=== PATIENT | female | born 1960 | race American Indian/Alaskan Native ===

== ENCOUNTER 2021-06-28 08:44 | Emergency (ER) | payer MEDICARE, OTHER ==
[2021-06-28] MEDS ORDERED: LORazepam 2 MG/ML SDV IVPUSH ONE ×7 (09:17→14:34)
--- NOTE | 2021-06-28 09:18 | CR ---
Chest: Portable view of the chest was obtained. Comparison: Prior chest x-ray of 02/21/21. Heart size and mediastinum are within normal limits. Lungs are clear with no acute parenchymal change. Bony structures show nothing acute. Impression: 1. No acute abnormality is appreciated on portable chest x-ray. Diagnostic code #1
--- NOTE | 2021-06-28 09:18 | CT ---
Head CT Technique: Multiple axial sections through the brain were obtained. Intravenous contrast was not utilized. Reconstructed coronal and sagittal images were obtained. Comparison: No prior intracranial imaging is available. Findings: Ventricles along with basal cisterns and sulci over the convexities are within normal limits for the patient's age. No abnormal parenchymal densities are seen. No evidence of intracranial hemorrhage is seen. No midline shift or mass-effect is seen. Minimal basal ganglia calcification is noted which is incidental. Bone window settings were reviewed. Visualized mastoid sinuses and paranasal sinuses show nothing acute. No acute calvarial abnormality is appreciated. Impression: 1. Nothing acute is seen on noncontrast head CT study. 2. If patient's symptoms warrant further evaluation, consider MRI to further evaluate. Diagnostic code #1
--- NOTE | 2021-06-28 09:20 | EDM.PDOC ---
ED HPI GENERAL MEDICAL PROBLEM - General Chief Complaint: Neuro Symptoms/Deficits Stated Complaint: SLURRING WORDS Time Seen by Provider: 06/28/21 08:48 - History of Present Illness INITIAL COMMENTS - FREE TEXT/NARRATIVE: 61-year-old female presents the emergency room with speech difficulties. A stroke alert was called. Last known normal approximately midnight. Her symptoms worsened around 630 or 7 this morning. The patient has been quite restless she has a history of restless legs and she cannot relax her legs. The patient uses gabapentin 3 times a day. According to the patient's daughter her pill bottle was at the side of her bed. The patient has not noticed any weakness. According to the patient's daughter she has been more confused and at times her speech has not made sense. There is no history of fevers or chills. Prior to this episode she is not having any pain is out of the ordinary. At this time she is having a hard time relaxing and keeps moving her legs. She complains of low back pain especially when she has to move her legs. She has no areas of numbness or weakness. - Related Data Allergies Allergy/AdvReac Type Severity Reaction Status Date / Time morphine Allergy Unknown Cannot Verified 06/28/21 09:51 Remember Home Meds: Home Meds FLUoxetine [PROzac] 40 mg PO DAILY 06/28/21 [History] Gabapentin [Neurontin] 100 mg PO TID 06/28/21 [History] Levothyroxine 112 mcg PO ACBREAKFAST 06/28/21 [History] Pantoprazole [ProTONIX] 40 mg PO DAILY 06/28/21 [History] Venlafaxine HCl [Venlafaxine ER] 37.5 mg PO DAILY 06/28/21 [History] atorvaSTATin [Lipitor] 40 mg PO BEDTIME 06/28/21 [History] lamoTRIgine [Lamotrigine] 2 tab PO DAILY 06/28/21 [History] Social & Family History - Tobacco Use Tobacco Use Status *Q: Never Tobacco User - Caffeine Use Caffeine Use: Reports: Coffee - Recreational Drug Use Recreational Drug Use: No ED ROS GENERAL - Review of Systems Review Of Systems: See Below Constitutional: Reports: No Symptoms. Denies: Fever, Chills HEENT: Reports: No Symptoms Respiratory: Reports: No Symptoms Cardiovascular: Reports: No Symptoms GI/Abdominal: Reports: No Symptoms : Reports: No Symptoms Musculoskeletal: Reports: Back Pain, Leg Pain (Restless leg) Neurological: Reports: Confusion. Denies: Headache Psychiatric: Reports: Agitation, Anxiety, Confusion ED EXAM, GENERAL - Physical Exam Exam: See Below Exam Limited By: No Limitations General Appearance: Alert, Anxious, Other (She cannot relax she is quite agitated exam is limited due to this.) Eye Exam: Bilateral Eye: EOMI, Normal Inspection, PERRL Ears: Normal External Exam, Normal Canal, Hearing Grossly Normal, Normal TMs Nose: Normal Inspection, Normal Mucosa, No Blood Throat/Mouth: Normal Inspection, Normal Lips, Normal Teeth, Normal Gums, Normal Oropharynx, Normal Voice, No Airway Compromise Head: Atraumatic, Normocephalic Neck: Normal Inspection, Supple, Non-Tender, Full Range of Motion. No: Lymphadenopathy (L), Lymphadenopathy (R), Tender Midline Respiratory/Chest: No Respiratory Distress, Lungs Clear, Normal Breath Sounds Cardiovascular: Regular Rate, Rhythm, No Edema, No Murmur GI/Abdominal: Normal Bowel Sounds, Soft, Non-Tender, Other (Obese) Extremities: Normal Inspection. No: Laura's Sign Neurological: Alert, No Motor/Sensory Deficits (She states she has good sensation with testing no obvious muscle weakness), Abnormal Reflexes (After the patient was intubated I checked for clonus and she has severe clonus multiple beats greater than 5), Other (She is really quite restless) Psychiatric: Anxious Skin Exam: Warm, Dry, Intact ED GENERAL MEDICAL PROCEDURES - Endotracheal Intubation Time of Intubation: 12:45 ET Intubation Indication: Airway Protection Preparation: Suction, Balloon Tested, BVM Set Up Airway Assessment: Obese Pre-Oxygenation: Assisted with BVM, 100% FiO2 Anesthesia Meds: Ketamine, Succinylcholine Placement: Orotracheal, Uncomplicated Placement Number of Attempts: 2 (Attempt failed because the glides go came loose from the #3 blade) Confirmed By: CO2 Indicator, Bilateral Breath Sounds, Chest Xray Tube Secured By: By RT Endotracheal Intubation Comment: Anticipated difficult intubation with her obesity first attempt failed due to technical difficulty the patient's O2 saturation remained stable during this quick transition #1 Interpretation EKG Date: 06/28/21 Rhythm: NSR Rate (Beats/Min): 96 [place]: Normal P-Wave: Present QRS: Other (Decreased voltage in the precordial leads) ST-T: Other ([place] ST-T changes low voltage T waves) QT: Prolonged Comparison: NA - No Prior EKG EKG Interpretation Comments: Abnormal EKG Course - Vital Signs Last Recorded V/S: Last Vital Signs Temp 36.5 C 06/28/21 09:06 Pulse 101 H 06/28/21 13:39 Resp 15 06/28/21 13:39 BP 101/63 06/28/21 13:39 Pulse Ox 96 06/28/21 13:39 - Orders/Labs/Meds Orders: Active Orders 24 hr Category Date Time Status Insert Garcia Catheter [Insert Urinary Catheter] [OM.PC] Care 06/28/21 13:45 Ordered Q24H Insert Urinary Catheter [OM.PC] Q24H Care 06/28/21 12:15 Ordered RT Ventilator, Adult [RC] ASDIRECTED Care 06/28/21 13:30 Active Urinary Catheter Assessment [RC] ASDIRECTED Care 06/28/21 12:07 Active Urinary Catheter Assessment [RC] ASDIRECTED Care 06/28/21 13:41 Active BLOOD CULTURE [MREF] Stat Lab 06/28/21 09:25 Received BLOOD CULTURE [MREF] Stat Lab 06/28/21 09:30 Received Ketamine [Ketalar] 500 mg Med 06/28/21 13:38 Active Sodium Chloride 0.9% [Normal Saline] 490 ml IV TITRATE Lactated Ringers [Ringers, Lactated] 1,000 ml Med 06/28/21 12:15 Active IV ASDIRECTED Lactated Ringers [Ringers, Lactated] 1,000 ml Med 06/28/21 13:15 Active IV ASDIRECTED Norepinephrine [Levophed] 4 mg Med 06/28/21 13:30 Active Dextrose 5% in Water 246 ml IV TITRATE Blood Culture x2 Reflex Set [OM.PC] Stat Oth 06/28/21 08:57 Ordered Medication Orders Lactated Ringer's (Ringers, Lactated) 1,000 mls @ 150 mls/hr IV ASDIRECTED [facility] Last Admin: 06/28/21 13:54 Dose: 150 mls/hr Documented by: MICHAELA Lactated Ringer's (Ringers, Lactated) 1,000 mls @ 999 mls/hr IV ASDIRECTED [facility] Last Admin: 06/28/21 13:52 Dose: 999 mls/hr Documented by: MICHAELA Norepinephrine Bitartrate 4 mg (/ Dextrose/Water) 250 mls @ 10 mls/hr IV TITRATE [facility] Last Infusion: 06/28/21 14:00 Dose: 11.3 mls/hr Documented by: Admin: 06/28/21 13:29 Dose: 10 mls/hr Documented by: MICHAELA Ketamine HCl 500 mg/ Sodium (Chloride) 500 mls @ 12 mls/hr IV TITRATE WILFREDO Labs: Laboratory Tests 06/28/21 06/28/21 06/28/21 Range/Units 09:05 09:05 09:05 WBC 9.52 (3.98-10.04) K/mm3 RBC 4.70 (3.98-5.22) M/mm3 Hgb 14.5 (11.2-15.7) gm/dl Hct 43.8 (34.1-44.9) % MCV 93.2 (79.4-94.8) fl MCH 30.9 (25.6-32.2) pg MCHC 33.1 (32.2-35.5) g/dl RDW Std Deviation 41.7 (36.4-46.3) fL Plt Count 248 (182-369) K/mm3 MPV 10.1 (9.4-12.3) fl Neut % (Auto) 68.0 (34.0-71.1) % Lymph % (Auto) 19.7 (19.3-51.7) % [place] % (Auto) 9.6 (4.7-12.5) % Eos % (Auto) 2.0 (0.7-5.8) Baso % (Auto) 0.5 (0.1-1.2) % Neut # (Auto) 6.47 H (1.56-6.13) K/mm3 Lymph # (Auto) 1.88 (1.18-3.74) K/mm3 [place] # (Auto) 0.91 H (0.24-0.36) K/mm3 Eos # (Auto) 0.19 (0.04-0.36) K/mm3 Baso # (Auto) 0.05 (0.01-0.08) K/mm3 PT 9.9 (9.7-12.0) SECONDS INR < 0.93 APTT 24.1 (21.7-31.4) SECONDS Puncture Site ABG pH (7.35-7.45) ABG pCO2 (35.0-45.0) mmHg ABG pO2 (80.0-100.0) mmHg ABG HCO3 (22.0-26.0) meq/L ABG O2 Saturation (96.0-97.0) % ABG Base Excess (-2-2.0) A-a Gradient mmHg O2 Delivery Device FiO2 (21.00-100.00) % Tidal Volume cc PEEP cmH20 Sodium 140 (136-145) mEq/L Potassium 4.3 (3.5-5.1) mEq/L Chloride 105 (98-107) mEq/L Carbon Dioxide 28 (21-32) mEq/L Anion Gap 11.3 (5-15) BUN 14 (7-18) mg/dL Creatinine 0.8 (0.55-1.02) mg/dL Est Cr Clr Drug Dosing 71.81 mL/min Estimated GFR (MDRD) > 60 (>60) mL/min BUN/Creatinine Ratio 17.5 (14-18) Glucose 103 H (70-99) mg/dL Lactic Acid (0.4-2.0) mmol/L Calcium 8.5 (8.5-10.1) mg/dL Total Bilirubin 0.7 (0.2-1.0) mg/dL AST 29 (15-37) U/L ALT 42 (14-59) U/L Alkaline Phosphatase 113 (46-116) U/L Ammonia (11-32) umol/L Troponin I < 0.017 (0.00-0.056) ng/mL Total Protein 7.2 (6.4-8.2) g/dl Albumin 3.6 (3.4-5.0) g/dl Globulin 3.6 gm/dL Albumin/Globulin Ratio 1.0 (1-2) Urine Color (Yellow) Urine Appearance (Clear) Urine pH (5.0-8.0) Ur Specific [place] (1.005-1.030) Urine Protein (Negative) Urine Glucose (UA) (Negative) Urine Ketones (Negative) Urine Occult Blood (Negative) Urine Nitrite (Negative) Urine Bilirubin (Negative) Urine Urobilinogen (0.2-1.0) Ur Leukocyte Esterase (Negative) Salicylates (2.8-20) mg/dL Urine Opiates Screen (BMKXZZ=764) Ur Buprenorphine Scrn (CUTOFF=10) Ur Oxycodone Screen (BPV1FL=750) Urine Methadone Screen (LUZDEI=395) Ur Propoxyphene Screen (DXIYZN=105) Acetaminophen (10-30) ug/mL Ur Barbiturates Screen (UEUSJH=909) Ur Tricyclics Screen (YWZDYW=643) Ur Phencyclidine Scrn (CUTOFF=25) Ur Amphetamine Screen (AQGVYM=756) U Methamphetamines Scrn (CREKIS=598) U Benzodiazepines Scrn (GWIHOD=413) U Cocaine Metab Screen (PQRARM=762) U Marijuana (THC) Screen (CUTOFF=50) Ethyl Alcohol (0.00) gm% SARS-CoV-2 RNA (SANDRA) (NEGATIVE) 06/28/21 06/28/21 06/28/21 Range/Units 09:05 09:05 09:05 WBC (3.98-10.04) K/mm3 RBC (3.98-5.22) M/mm3 Hgb (11.2-15.7) gm/dl Hct (34.1-44.9) % MCV (79.4-94.8) fl MCH (25.6-32.2) pg MCHC (32.2-35.5) g/dl RDW Std Deviation (36.4-46.3) fL Plt Count (182-369) K/mm3 MPV (9.4-12.3) fl Neut % (Auto) (34.0-71.1) % Lymph % (Auto) (19.3-51.7) % [place] % (Auto) (4.7-12.5) % Eos % (Auto) (0.7-5.8) Baso % (Auto) (0.1-1.2) % Neut # (Auto) (1.56-6.13) K/mm3 Lymph # (Auto) (1.18-3.74) K/mm3 [place] # (Auto) (0.24-0.36) K/mm3 Eos # (Auto) (0.04-0.36) K/mm3 Baso # (Auto) (0.01-0.08) K/mm3 PT (9.7-12.0) SECONDS INR APTT (21.7-31.4) SECONDS Puncture Site ABG pH (7.35-7.45) ABG pCO2 (35.0-45.0) mmHg ABG pO2 (80.0-100.0) mmHg ABG HCO3 (22.0-26.0) meq/L ABG O2 Saturation (96.0-97.0) % ABG Base Excess (-2-2.0) A-a Gradient mmHg O2 Delivery Device FiO2 (21.00-100.00) % Tidal Volume cc PEEP cmH20 Sodium (136-145) mEq/L Potassium (3.5-5.1) mEq/L Chloride (98-107) mEq/L Carbon Dioxide (21-32) mEq/L Anion Gap (5-15) BUN (7-18) mg/dL Creatinine (0.55-1.02) mg/dL Est Cr Clr Drug Dosing mL/min Estimated GFR (MDRD) (>60) mL/min BUN/Creatinine Ratio (14-18) Glucose (70-99) mg/dL Lactic Acid (0.4-2.0) mmol/L Calcium (8.5-10.1) mg/dL Total Bilirubin (0.2-1.0) mg/dL AST (15-37) U/L ALT (14-59) U/L Alkaline Phosphatase (46-116) U/L Ammonia (11-32) umol/L Troponin I (0.00-0.056) ng/mL Total Protein (6.4-8.2) g/dl Albumin (3.4-5.0) g/dl Globulin gm/dL Albumin/Globulin Ratio (1-2) Urine Color (Yellow) Urine Appearance (Clear) Urine pH (5.0-8.0) Ur Specific [place] (1.005-1.030) Urine Protein (Negative) Urine Glucose (UA) (Negative) Urine Ketones (Negative) Urine Occult Blood (Negative) Urine Nitrite (Negative) Urine Bilirubin (Negative) Urine Urobilinogen (0.2-1.0) Ur Leukocyte Esterase (Negative) Salicylates < 0.2 L (2.8-20) mg/dL Urine Opiates Screen (XIBUDW=023) Ur Buprenorphine Scrn (CUTOFF=10) Ur Oxycodone Screen (UES2GW=013) Urine Methadone Screen (JOWYTK=144) Ur Propoxyphene Screen (CXZBKZ=060) Acetaminophen 0 L (10-30) ug/mL Ur Barbiturates Screen (PIZCOZ=104) Ur Tricyclics Screen (AYGCHE=686) Ur Phencyclidine Scrn (CUTOFF=25) Ur Amphetamine Screen (WPZWBB=504) U Methamphetamines Scrn (CRXZBT=832) U Benzodiazepines Scrn (SOEWVZ=654) U Cocaine Metab Screen (RGBNPM=757) U Marijuana (THC) Screen (CUTOFF=50) Ethyl Alcohol 0.00 (0.00) gm% SARS-CoV-2 RNA (SANDRA) (NEGATIVE) 06/28/21 06/28/21 06/28/21 Range/Units 09:25 09:30 09:35 WBC (3.98-10.04) K/mm3 RBC (3.98-5.22) M/mm3 Hgb (11.2-15.7) gm/dl Hct (34.1-44.9) % MCV (79.4-94.8) fl MCH (25.6-32.2) pg MCHC (32.2-35.5) g/dl RDW Std Deviation (36.4-46.3) fL Plt Count (182-369) K/mm3 MPV (9.4-12.3) fl Neut % (Auto) (34.0-71.1) % Lymph % (Auto) (19.3-51.7) % [place] % (Auto) (4.7-12.5) % Eos % (Auto) (0.7-5.8) Baso % (Auto) (0.1-1.2) % Neut # (Auto) (1.56-6.13) K/mm3 Lymph # (Auto) (1.18-3.74) K/mm3 [place] # (Auto) (0.24-0.36) K/mm3 Eos # (Auto) (0.04-0.36) K/mm3 Baso # (Auto) (0.01-0.08) K/mm3 PT (9.7-12.0) SECONDS INR APTT (21.7-31.4) SECONDS Puncture Site ABG pH (7.35-7.45) ABG pCO2 (35.0-45.0) mmHg ABG pO2 (80.0-100.0) mmHg ABG HCO3 (22.0-26.0) meq/L ABG O2 Saturation (96.0-97.0) % ABG Base Excess (-2-2.0) A-a Gradient mmHg O2 Delivery Device FiO2 (21.00-100.00) % Tidal Volume cc PEEP cmH20 Sodium (136-145) mEq/L Potassium (3.5-5.1) mEq/L Chloride (98-107) mEq/L Carbon Dioxide (21-32) mEq/L Anion Gap (5-15) BUN (7-18) mg/dL Creatinine (0.55-1.02) mg/dL Est Cr Clr Drug Dosing mL/min Estimated GFR (MDRD) (>60) mL/min BUN/Creatinine Ratio (14-18) Glucose (70-99) mg/dL Lactic Acid 0.9 (0.4-2.0) mmol/L Calcium (8.5-10.1) mg/dL Total Bilirubin (0.2-1.0) mg/dL AST (15-37) U/L ALT (14-59) U/L Alkaline Phosphatase (46-116) U/L Ammonia 13 (11-32) umol/L Troponin I (0.00-0.056) ng/mL Total Protein (6.4-8.2) g/dl Albumin (3.4-5.0) g/dl Globulin gm/dL Albumin/Globulin Ratio (1-2) Urine Color (Yellow) Urine Appearance (Clear) Urine pH (5.0-8.0) Ur Specific [place] (1.005-1.030) Urine Protein (Negative) Urine Glucose (UA) (Negative) Urine Ketones (Negative) Urine Occult Blood (Negative) Urine Nitrite (Negative) Urine Bilirubin (Negative) Urine Urobilinogen (0.2-1.0) Ur Leukocyte Esterase (Negative) Salicylates (2.8-20) mg/dL Urine Opiates Screen (AZHNAU=461) Ur Buprenorphine Scrn (CUTOFF=10) Ur Oxycodone Screen (APW9VD=864) Urine Methadone Screen (CGCZAU=159) Ur Propoxyphene Screen (SLOWHA=201) Acetaminophen (10-30) ug/mL Ur Barbiturates Screen (DHZZYS=773) Ur Tricyclics Screen (THBDSG=167) Ur Phencyclidine Scrn (CUTOFF=25) Ur Amphetamine Screen (NJCQTR=722) U Methamphetamines Scrn (GVUVOB=880) U Benzodiazepines Scrn (SOQGYR=972) U Cocaine Metab Screen (GSJKWL=647) U Marijuana (THC) Screen (CUTOFF=50) Ethyl Alcohol (0.00) gm% SARS-CoV-2 RNA (SANDRA) Negative (NEGATIVE) 06/28/21 06/28/21 06/28/21 Range/Units 11:50 11:50 12:09 WBC (3.98-10.04) K/mm3 RBC (3.98-5.22) M/mm3 Hgb (11.2-15.7) gm/dl Hct (34.1-44.9) % MCV (79.4-94.8) fl MCH (25.6-32.2) pg MCHC (32.2-35.5) g/dl RDW Std Deviation (36.4-46.3) fL Plt Count (182-369) K/mm3 MPV (9.4-12.3) fl Neut % (Auto) (34.0-71.1) % Lymph % (Auto) (19.3-51.7) % [place] % (Auto) (4.7-12.5) % Eos % (Auto) (0.7-5.8) Baso % (Auto) (0.1-1.2) % Neut # (Auto) (1.56-6.13) K/mm3 Lymph # (Auto) (1.18-3.74) K/mm3 [place] # (Auto) (0.24-0.36) K/mm3 Eos # (Auto) (0.04-0.36) K/mm3 Baso # (Auto) (0.01-0.08) K/mm3 PT (9.7-12.0) SECONDS INR APTT (21.7-31.4) SECONDS Puncture Site Lt radial ABG pH 7.37 (7.35-7.45) ABG pCO2 41.6 (35.0-45.0) mmHg ABG pO2 69.0 L (80.0-100.0) mmHg ABG HCO3 23.5 (22.0-26.0) meq/L ABG O2 Saturation 91.0 L (96.0-97.0) % ABG Base Excess -1.2 (-2-2.0) A-a Gradient 29 mmHg O2 Delivery Device Room air FiO2 21.00 (21.00-100.00) % Tidal Volume cc PEEP cmH20 Sodium (136-145) mEq/L Potassium (3.5-5.1) mEq/L Chloride (98-107) mEq/L Carbon Dioxide (21-32) mEq/L Anion Gap (5-15) BUN (7-18) mg/dL Creatinine (0.55-1.02) mg/dL Est Cr Clr Drug Dosing mL/min Estimated GFR (MDRD) (>60) mL/min BUN/Creatinine Ratio (14-18) Glucose (70-99) mg/dL Lactic Acid (0.4-2.0) mmol/L Calcium (8.5-10.1) mg/dL Total Bilirubin (0.2-1.0) mg/dL AST (15-37) U/L ALT (14-59) U/L Alkaline Phosphatase (46-116) U/L Ammonia (11-32) umol/L Troponin I (0.00-0.056) ng/mL Total Protein (6.4-8.2) g/dl Albumin (3.4-5.0) g/dl Globulin gm/dL Albumin/Globulin Ratio (1-2) Urine Color Yellow (Yellow) Urine Appearance Clear (Clear) Urine pH 7.0 (5.0-8.0) Ur Specific [place] 1.015 (1.005-1.030) Urine Protein Negative (Negative) Urine Glucose (UA) Negative (Negative) Urine Ketones Negative (Negative) Urine Occult Blood Negative (Negative) Urine Nitrite Negative (Negative) Urine Bilirubin Negative (Negative) Urine Urobilinogen 0.2 (0.2-1.0) Ur Leukocyte Esterase Negative (Negative) Salicylates (2.8-20) mg/dL Urine Opiates Screen Negative (NDNMGL=730) Ur Buprenorphine Scrn Negative (CUTOFF=10) Ur Oxycodone Screen Negative (OVT2XT=560) Urine Methadone Screen Negative (ZDPNCQ=581) Ur Propoxyphene Screen Negative (HHAYPP=462) Acetaminophen (10-30) ug/mL Ur Barbiturates Screen Negative (SFHJDT=154) Ur Tricyclics Screen Negative (JALEAH=942) Ur Phencyclidine Scrn Negative (CUTOFF=25) Ur Amphetamine Screen Negative (YTQGVX=304) U Methamphetamines Scrn Negative (ZLKXHZ=508) U Benzodiazepines Scrn Negative (QCRRXQ=521) U Cocaine Metab Screen Negative (BZPXUN=307) U Marijuana (THC) Screen Negative (CUTOFF=50) Ethyl Alcohol (0.00) gm% SARS-CoV-2 RNA (SANDRA) (NEGATIVE) 06/28/21 Range/Units 13:26 WBC (3.98-10.04) K/mm3 RBC (3.98-5.22) M/mm3 Hgb (11.2-15.7) gm/dl Hct (34.1-44.9) % MCV (79.4-94.8) fl MCH (25.6-32.2) pg MCHC (32.2-35.5) g/dl RDW Std Deviation (36.4-46.3) fL Plt Count (182-369) K/mm3 MPV (9.4-12.3) fl Neut % (Auto) (34.0-71.1) % Lymph % (Auto) (19.3-51.7) % [place] % (Auto) (4.7-12.5) % Eos % (Auto) (0.7-5.8) Baso % (Auto) (0.1-1.2) % Neut # (Auto) (1.56-6.13) K/mm3 Lymph # (Auto) (1.18-3.74) K/mm3 [place] # (Auto) (0.24-0.36) K/mm3 Eos # (Auto) (0.04-0.36) K/mm3 Baso # (Auto) (0.01-0.08) K/mm3 PT (9.7-12.0) SECONDS INR APTT (21.7-31.4) SECONDS Puncture Site Rt radial ABG pH 7.25 L (7.35-7.45) ABG pCO2 57.6 H (35.0-45.0) mmHg ABG pO2 109.0 H (80.0-100.0) mmHg ABG HCO3 24.6 (22.0-26.0) meq/L ABG O2 Saturation 97.1 H (96.0-97.0) % ABG Base Excess -3.1 L (-2-2.0) A-a Gradient 140 mmHg O2 Delivery Device Ventilator FiO2 45.00 (21.00-100.00) % Tidal Volume 450.0 cc PEEP 5.0 cmH20 Sodium (136-145) mEq/L Potassium (3.5-5.1) mEq/L Chloride (98-107) mEq/L Carbon Dioxide (21-32) mEq/L Anion Gap (5-15) BUN (7-18) mg/dL Creatinine (0.55-1.02) mg/dL Est Cr Clr Drug Dosing mL/min Estimated GFR (MDRD) (>60) mL/min BUN/Creatinine Ratio (14-18) Glucose (70-99) mg/dL Lactic Acid (0.4-2.0) mmol/L Calcium (8.5-10.1) mg/dL Total Bilirubin (0.2-1.0) mg/dL AST (15-37) U/L ALT (14-59) U/L Alkaline Phosphatase (46-116) U/L Ammonia (11-32) umol/L Troponin I (0.00-0.056) ng/mL Total Protein (6.4-8.2) g/dl Albumin (3.4-5.0) g/dl Globulin gm/dL Albumin/Globulin Ratio (1-2) Urine Color (Yellow) Urine Appearance (Clear) Urine pH (5.0-8.0) Ur Specific [place] (1.005-1.030) Urine Protein (Negative) Urine Glucose (UA) (Negative) Urine Ketones (Negative) Urine Occult Blood (Negative) Urine Nitrite (Negative) Urine Bilirubin (Negative) Urine Urobilinogen (0.2-1.0) Ur Leukocyte Esterase (Negative) Salicylates (2.8-20) mg/dL Urine Opiates Screen (ULKONF=219) Ur Buprenorphine Scrn (CUTOFF=10) Ur Oxycodone Screen (REY5TL=706) Urine Methadone Screen (ODGBAD=217) Ur Propoxyphene Screen (OEIXIZ=182) Acetaminophen (10-30) ug/mL Ur Barbiturates Screen (DQGBGV=640) Ur Tricyclics Screen (YGQLAM=570) Ur Phencyclidine Scrn (CUTOFF=25) Ur Amphetamine Screen (RHRICO=938) U Methamphetamines Scrn (AGUONC=601) U Benzodiazepines Scrn (LSHFKE=431) U Cocaine Metab Screen (ULWNQR=632) U Marijuana (THC) Screen (CUTOFF=50) Ethyl Alcohol (0.00) gm% SARS-CoV-2 RNA (SANDRA) (NEGATIVE) Meds: Medications Generic Name Dose Route Start Last Admin Trade Name Anel PRN Reason Stop Dose Admin Lactated Ringer's 1,000 mls @ 150 mls/hr 06/28/21 12:15 06/28/21 13:54 Ringers, Lactated IV 150 mls/hr ASDIRECTED WILFREDO Administration Lactated Ringer's 1,000 mls @ 999 mls/hr 06/28/21 13:15 06/28/21 13:52 Ringers, Lactated IV 999 mls/hr ASDIRECTED WILFREDO Administration Norepinephrine Bitartrate 4 mg 250 mls @ 10 mls/hr 06/28/21 13:30 06/28/21 14:00 / Dextrose/Water IV 11.3 mls/hr TITRATE WILFREDO Infusion Ketamine HCl 500 mg/ Sodium 500 mls @ 12 mls/hr 06/28/21 13:38 Chloride IV TITRATE WILFREDO Discontinued Medications Generic Name Dose Route Start Last Admin Trade Name nAel PRN Reason Stop Dose Admin Diphenhydramine HCl 50 mg 06/28/21 10:12 06/28/21 10:26 Diphenhydramine 50 Mg/Ml Sdv IVPUSH 06/28/21 10:13 50 mg ONETIME ONE Administration Haloperidol Lactate 5 mg 06/28/21 10:12 06/28/21 10:25 Haloperidol Lactate 5 Mg/Ml Sdv IVPUSH 06/28/21 10:13 5 mg ONETIME ONE Administration Lactated Ringer's 500 mls @ 999 mls/hr 06/28/21 12:10 06/28/21 12:22 Ringers, Lactated IV 06/28/21 12:40 999 mls/hr .BOLUS ONE Administration Midazolam HCl 100 mg/ Sodium 100 mls @ 1 mls/hr 06/28/21 12:15 Chloride IV TITRATE WILFREDO Protocol 1 MG/HR Fentanyl 2,500 mcg/ Sodium 250 mls @ 10.841 mls/hr 06/28/21 12:15 Chloride IV TITRATE WILFREDO Protocol 1 MCG/KG/HR Propofol 100 mls @ 3.252 mls/hr 06/28/21 13:00 Diprivan 100 Ml IV TITRATE WILFREDO Protocol 5 MCG/KG/MIN Ketamine HCl 500 mg/ Sodium 510 mls @ 12 mls/hr 06/28/21 13:15 06/28/21 14:07 Chloride IV Infused TITRATE WILFREDO Infusion Ketamine HCl Confirm 06/28/21 13:13 06/28/21 13:33 Ketamine 500 Mg/10 Ml Mdv Administered 06/28/21 13:14 Not Given Dose 500 mg .ROUTE .STK-MED ONE Lorazepam 1 mg 06/28/21 09:17 06/28/21 09:25 Lorazepam 2 Mg/Ml Sdv IVPUSH 06/28/21 09:18 1 mg ONETIME ONE Administration Lorazepam 2 mg 06/28/21 09:35 Lorazepam 2 Mg/Ml Sdv IVPUSH 06/28/21 09:36 ONETIME ONE Lorazepam 1 mg 06/28/21 09:37 06/28/21 11:11 Lorazepam 2 Mg/Ml Sdv IVPUSH 06/28/21 09:38 1 mg ONETIME ONE Administration Lorazepam 1 mg 06/28/21 09:38 06/28/21 10:03 Lorazepam 2 Mg/Ml Sdv IVPUSH 06/28/21 09:39 1 mg ONETIME ONE Administration Lorazepam 1 mg 06/28/21 09:38 06/28/21 09:42 Lorazepam 2 Mg/Ml Sdv IVPUSH 06/28/21 09:39 1 mg ONETIME ONE Administration Lorazepam 1 mg 06/28/21 10:58 06/28/21 13:08 Lorazepam 2 Mg/Ml Sdv IVPUSH 06/28/21 10:59 Not Given ONETIME ONE Lorazepam 2 mg 06/28/21 14:34 06/28/21 14:42 Lorazepam 2 Mg/Ml Sdv IVPUSH 06/28/21 14:35 2 mg ONETIME ONE Administration Ondansetron HCl 4 mg 06/28/21 10:01 06/28/21 10:06 Ondansetron 4 Mg/2 Ml Sdv IVPUSH 06/28/21 10:02 4 mg ONETIME ONE Administration - Re-Assessments/Exams Free Text/Narrative Re-Assessment/Exam: 06/28/21 09:[address] is unremarkable chest x-ray does not show any acute changes. We are awaiting an EKG get the patient to relax long enough to get a reasonable tracing has been a problem. I am attempting to get her to calm down a little bit by giving her gentle doses of Ativan 1 mg at a time we will see how she does. Labs ordered 06/28/21 10:33 Discussed with Annie at the [place] [facility] who agrees that if she took too much gabapentin she would probably be sedated unless she is having anticholinergic effects. She agrees with current treatment. This point we are still awaiting EKG and a urine test. 06/28/21 12:12 Patient situation is not really improving she gets more sedated with more medication but she still thrashing around. She will not follow commands she will not open her eyes. She has no meaningful extremity movements just erratic extremity movements. And she moans with no meaningful sounds is probably best intubate the patient 06/28/21 13:36 Patient's blood pressure was a little low she was given some fluid she was moved to trauma 2 anticipating intubation patient was given a fluid bolus. She was pretreated with oxygen. She was given ketamine 1 mg/kg. And then succinylcholine 1.5 mg/kg. Initially patient failed as the glide scope from the tip. This was reinserted and successful endotracheal intubation was achieved confirmed with bilateral breath sounds and CO2 color change as well as direct visualization of the ET tube going into the cords and into the trachea. The patient tolerated this without difficulty. She was started on fentanyl and Versed drip however on my reexam I want to check her for clonus and she is got significant clonus. It was thought best at this point to go and discontinue the fentanyl as it can have some serotonergic effect. With the lack of sedation the patient initially had I think it is unlikely that she took too many of her gabapentin but may be took too many of her SSRI meds. We are anticipating changing her to propofol then her blood pressure decreased. Decision was made to put her on ketamine drip. This is all been done and the patient is doing much better. Case reviewed with poison control again concur with current treatment. I have been told that we have no beds available here. And we cannot find any more in the state but we are looking. 06/28/21 15:18 We found a bed availability at [facility] and I believe we have transportation set up through [facility]. Dr. Laura kindly accepted the patient shortly before 15:00 Departure - Departure Time of Disposition: 15:19 Disposition: DC/Tfer to Acute Hospital 02 Condition: Critical Clinical Impression: Drug overdose, multiple drugs - Discharge Information Referrals: Hui Phillips, [employer] [Primary Care Provider] - Forms: ED Department Discharge Sepsis Event Note (ED) - Evaluation Sepsis Screening Result: No Definite Risk - Focused Exam Vital Signs: Vital Signs Temp Pulse Resp BP Pulse Ox 06/28/21 13:39 101 H 15 101/63 96 06/28/21 12:03 144 H 20 84/55 L 91 L 06/28/21 11:45 144 H 22 H 93/58 L 91 L 06/28/21 11:00 136 H 111/69 93 L 06/28/21 09:56 96 22 H 132/89 96 06/28/21 09:06 36.5 C 71 20 160/132 H 98 - My Orders Last 24 Hours: My Active Orders 06/28/21 08:57 Blood Culture x2 Reflex Set [OM.PC] Stat 06/28/21 09:25 BLOOD CULTURE [MREF] Stat 06/28/21 09:30 BLOOD CULTURE [MREF] Stat 06/28/21 12:07 Urinary Catheter Assessment [RC] ASDIRECTED 06/28/21 12:15 Insert Urinary Catheter [OM.PC] Q24H Lactated Ringers [Ringers, Lactated] 1,000 ml IV ASDIRECTED 06/28/21 13:15 Lactated Ringers [Ringers, Lactated] 1,000 ml IV ASDIRECTED 06/28/21 13:30 RT Ventilator, Adult [RC] ASDIRECTED Norepinephrine [Levophed] 4 mg Dextrose 5% in Water 246 ml IV TITRATE 06/28/21 13:38 Ketamine [Ketalar] 500 mg Sodium Chloride 0.9% [Normal Saline] 490 ml IV TITRATE 06/28/21 13:41 Urinary Catheter Assessment [RC] ASDIRECTED 06/28/21 13:45 Insert Garcia Catheter [Insert Urinary Catheter] [OM.PC] Q24H - Assessment/Plan Last 24 Hours: My Active Orders 06/28/21 08:57 Blood Culture x2 Reflex Set [OM.PC] Stat 06/28/21 09:25 BLOOD CULTURE [MREF] Stat 06/28/21 09:30 BLOOD CULTURE [MREF] Stat 06/28/21 12:07 Urinary Catheter Assessment [RC] ASDIRECTED 06/28/21 12:15 Insert Urinary Catheter [OM.PC] Q24H Lactated Ringers [Ringers, Lactated] 1,000 ml IV ASDIRECTED 06/28/21 13:15 Lactated Ringers [Ringers, Lactated] 1,000 ml IV ASDIRECTED 06/28/21 13:30 RT Ventilator, Adult [RC] ASDIRECTED Norepinephrine [Levophed] 4 mg Dextrose 5% in Water 246 ml IV TITRATE 06/28/21 13:38 Ketamine [Ketalar] 500 mg Sodium Chloride 0.9% [Normal Saline] 490 ml IV TITRATE 06/28/21 13:41 Urinary Catheter Assessment [RC] ASDIRECTED 06/28/21 13:45 Insert Garcia Catheter [Insert Urinary Catheter] [OM.PC] Q24H
[2021-06-28] MEDS ORDERED: Ondansetron 4 MG/2 ML SDV IVPUSH ONE (10:01)
[2021-06-28] MEDS ORDERED: Haloperidol Lactate 5 MG/ML SDV IVPUSH ONE (10:12)
[2021-06-28] MEDS ORDERED: diphenhydrAMINE 50 MG/ML SDV IVPUSH ONE (10:12)
[2021-06-28] MEDS ORDERED: Succinylcholine 200 MG/10 ML MDV ONE (12:00)
[2021-06-28] MEDS ORDERED: Ketamine 500 mg/10 ML MDV ONE ×2 (12:00→13:13)
[2021-06-28] MEDS ORDERED: Lactated Ringers 500 ML IV ONE (12:10)
[2021-06-28] MEDS ORDERED: fentaNYL 2,500 MCG in Sodium Chloride 0.9% 200 ML IV SCH (12:15)
[2021-06-28] MEDS ORDERED: Lactated Ringers 1,000 ML IV SCH ×2 (12:15→13:15)
[2021-06-28] MEDS ORDERED: propofoL 100 ML IV SCH (13:00)
[2021-06-28] MEDS ORDERED: Ketamine 500 mg/10 ML MDV IV PRN (13:09)
[2021-06-28] MEDS ORDERED: Norepinephrine 4 MG in Dextrose 5% in Water 246 ML IV SCH ×4 (13:30)
[2021-06-28] MEDS: Ketamine 500 MG in Sodium Chloride 0.9% 500 ML IV SCH ×2 (13:31→14:07)
--- NOTE | 2021-06-28 13:33 | CR ---
Chest: Portable supine view of the chest was obtained. Comparison: Prior chest x-ray performed earlier on the same day (9:04 AM). Endotracheal tube is seen. Tip lies at the upper level of the clavicles and above the ian. Nasogastric tube is seen with side port being close to the gastroesophageal junction. Tip lies within the stomach. Heart size and mediastinum are within normal limits. Minimal atelectasis is seen within the right lung base. Lungs otherwise are clear. Bony structures show slight degenerative change within the spine. Impression: 1. Endotracheal tube lies at the upper level of the clavicles which is above the ian. 2. Slight atelectasis within the right lung base. 3. Nasogastric tube. Proximal side-port lies close to the gastroesophageal junction. Diagnostic code #2
[2021-06-28] MEDS ORDERED: Ketamine 500 MG in Sodium Chloride 0.9% 490 ML IV SCH (13:38)
== END 2021-06-28 15:57 ==
LOC: JD.ED 08:44
DX: T42.6X1A Poisoning by other antiepileptic and sedative-hypnotic drugs, accidental (unintentional), initial encounter (principal); Z88.5 Allergy status to narcotic agent; Z79.899 Other long term (current) drug therapy; Z20.822 Contact with and (suspected) exposure to COVID-19
CPT/HCPCS: 31500; 36415; 36600; 51702; 70450; 70450-26; 71045; 71045-26; 80053; 80143; 80179; 80306; 80307; 81003; 82140; 82803; 83605; 84484; 85025; 85610; 85730; 87040; 93005; 96365; 96366; 96375; 96376; 99285-25; J0330; J1200; J1630; J2060; J2250; J2405; J3010; J7040; J7050; J7060; J7120; U0002